=== PATIENT | male | born 1930 | race Caucasian/White ===

== ENCOUNTER 2016-10-27 15:13 | Inpatient (IN) | payer OTHER ==
[~2016-10-27] VITALS: Ht 172.7 cm; Wt 83.5 kg
[2016-10-27 16:03] VITALS: BP 114/61
[2016-10-27 16:19] VITALS: Ht 172.7 cm; Wt 83.5 kg
[2016-10-27 17:17] LABS: PHOSPHOROUS 3.8 mg/dL (2.5-4.9)
[2016-10-27 17:20] LABS: CHOLESTEROL/HDL RATIO 3.8; MAGNESIUM 2.3 mg/dL (1.8-2.4)
[2016-10-27 17:24] LABS: T3 TOTAL 0.87 ng/mL
[2016-10-27 18:11] LABS: microscopic required? NO
[2016-10-27 18:29] LABS: UA SPECIFIC GRAVITY 1.015 (1.005-1.035); urine erythrocyte NEGATIVE (NEGATIVE)
[2016-10-27 18:47] LABS: AMPHETAMINE QUAL UR NONE DETECTED (NEG <=1000)
[2016-10-27 19:01] LABS: FREE T4 1.44 ng/dL (0.76-1.46); T4(THYROXINE) 8.2 ug/dL (4.7-13.3)
[2016-10-27 20:33] VITALS: BP 112/56
[2016-10-28 05:13] VITALS: BP 126/69
[2016-10-28 06:12] LABS: BASOPHIL % 0.9 % (0-2); PLATELET COUNT 232 x10^3mcL (130-400); RED CELL DISTRIBUTION WIDTH 13.1 % (11.5-14.5)
[2016-10-28 06:34] LABS: ALBUMIN 3.6 g/dL (3.4-5.0); ALKALINE PHOSPHATASE 53 U/L (46-116); ALT/SGPT 25 U/L (16-63); AST/SGOT 38 U/L (15-37); CALCIUM 8.8 mg/dL (8.5-10.1); CARBON DIOXIDE 27.7 mmol/L (21-32); CHLORIDE SERUM 104 mmol/L (98-107); CREATININE SERUM 1.2 mg/dL (0.7-1.3); GLUCOSE SERUM 98 mg/dL (74-106); POTASSIUM SERUM 3.3 mmol/L (3.5-5.1); SODIUM SERUM 140 mmol/L (136-145); TOTAL PROTEIN, SERUM 6.4 g/dL (6.4-8.2)
[2016-10-28 09:05] VITALS: BP 106/57
[2016-10-28 18:57] VITALS: BP 118/62
[2016-10-29 05:39] VITALS: BP 120/63
[2016-10-29 06:11] LABS: BASOPHIL % 0.7 % (0-2); PLATELET COUNT 258 x10^3mcL (130-400); RED CELL DISTRIBUTION WIDTH 13.2 % (11.5-14.5)
[2016-10-29 06:55] LABS: CALCIUM 9.3 mg/dL (8.5-10.1); CARBON DIOXIDE 24.6 mmol/L (21-32); CHLORIDE SERUM 103 mmol/L (98-107); CREATININE SERUM 1.5 mg/dL (0.7-1.3); GLUCOSE SERUM 97 mg/dL (74-106); POTASSIUM SERUM 3.4 mmol/L (3.5-5.1); SODIUM SERUM 142 mmol/L (136-145)
[2016-10-29 09:08] VITALS: BP 111/54
[2016-10-29] MEDS ORDERED: L20 PO (14:38)
[2016-10-29] MEDS ORDERED: FLO4 PO (14:38)
[2016-10-29] MEDS ORDERED: DEP125 PO (14:38)
[2016-10-29] MEDS ORDERED: APAP/HYDROCODON1 T13 PO (14:38)
[2016-10-29] MEDS ORDERED: RES15 PO (14:38)
[2016-10-29] MEDS ORDERED: LORAZEPAM0.5 MG PO (14:38)
[2016-10-29] MEDS ORDERED: QUETIAPINE FUMA25 M1 PO (14:38)
== END 2016-10-29 15:10 | disposition home or self-care (01) | DRG 56 ==
LOC: DU 15:13
PROVIDERS: ADMIT Family Medicine
DX: G30.9 Alzheimer's disease, unspecified (principal); G93.41 Metabolic encephalopathy; C79.51 Secondary malignant neoplasm of bone; C77.9 Secondary and unspecified malignant neoplasm of lymph node, unspecified; F02.80 Dementia in other diseases classified elsewhere, unspecified severity, without behavioral disturbance, psychotic disturbance, mood disturbance, and anxiety; E78.5 Hyperlipidemia, unspecified; M81.0 Age-related osteoporosis without current pathological fracture; E03.9 Hypothyroidism, unspecified; H40.9 Unspecified glaucoma; C61 Malignant neoplasm of prostate; Z98.49 Cataract extraction status, unspecified eye; Z82.49 Family history of ischemic heart disease and other diseases of the circulatory system
CPT/HCPCS: 80307; 84439; J1630; J1940; J7030